=== PATIENT | female | born 1955 | race Caucasian/White ===

== ENCOUNTER 2025-01-14 11:33 | Outpatient (CLI) | payer MEDICARE, BC, SELFPAY | END 2025-01-14 11:34 | disposition home or self-care (01) | LOC: INJ CL 11:39 | PROVIDERS: Visit Provider Family Medicine | DX: M54.16 Radiculopathy, lumbar region (principal); M48.062 Spinal stenosis, lumbar region with neurogenic claudication | CPT/HCPCS: 62323; 64483; J1100; Q9966 ==

== ENCOUNTER 2025-03-04 08:20 | Outpatient (CLI) | payer MEDICARE, BC, SELFPAY | END 2025-03-04 08:21 | disposition home or self-care (01) | PROVIDERS: Visit Provider Family Medicine | DX: M54.16 Radiculopathy, lumbar region (principal); M48.062 Spinal stenosis, lumbar region with neurogenic claudication | CPT/HCPCS: 64483; J1100; Q9966 ==

== ENCOUNTER 2025-07-15 07:19 | Outpatient (CLI) | payer MEDICARE, BC, SELFPAY | END 2025-07-15 07:20 | disposition home or self-care (01) | LOC: INJ CL 07:19 | PROVIDERS: Visit Provider Family Medicine | DX: M54.16 Radiculopathy, lumbar region (principal); M48.062 Spinal stenosis, lumbar region with neurogenic claudication | CPT/HCPCS: 64483; Q9966 ==